=== PATIENT | female | born 1990 | race African-American/Black ===

== ENCOUNTER 2024-05-15 08:51 | Emergency (ER) | payer OTHER ==
[~2024-05-15] VITALS: Ht 160 cm; Wt 77.0 kg
[2024-05-15 09:36] VITALS: PULSE 75; RESP 16; O2SAT 98
[2024-05-15 11:32] LABS: Basophils # (auto) 0 10 ^3/uL (0-0.2); Basophils % (auto) 0.3 % (0.0-2.0); Eosinophils # (auto) 0 10 ^3/uL (0-0.8); Eosinophils % (auto) 0.3 % (0.0-7.0); Hematocrit 41.3 % (36.0-46.0); Hemoglobin 13.4 g/dL (12.2-16.2); Lymphocytes # (auto) 2.1 10 ^3/uL (0.4-5.4); Lymphocytes % (auto) 21.2 % (10.0-50.0); Mean Corpuscular Hgb Conc. 32.5 g/dL (32.0-36.0); Mean Corpuscular Volume 80.1 fL (80.0-100.0); Monocytes # (auto) 0.5 10 ^3/uL (0-1.3); Neutrophils # (auto) 7.2 10 ^3/uL (1.6-8.6); Neutrophils % (auto) 73.2 % (37.0-80.0); Platelet Count (auto) 322 10^3/uL (140-450); Red Blood Cells 5.16 10^6/uL (4.0-5.20); Red Cell Distribution Width 15.5 % (11.8-14.3); White Blood Cell 9.8 10^3/uL (4.4-10.8)
[2024-05-15 11:39] LABS: Chloride 108 mmol/L (98-107); Potassium 4.2 mmol/L (3.5-5.1); Sodium 138 mmol/L (136-145)
[2024-05-15 11:40] LABS: Anion Gap 8 (5-15); Carbon Dioxide 22 mmol/L (20-31)
[2024-05-15 11:41] LABS: Calcium 10.6 mg/dL (8.7-10.4)
[2024-05-15 11:45] LABS: BUN/Creatinine Ratio 10.1 (10.0-20.0); Blood Urea Nitrogen 8 mg/dL (9-23); Glucose 83 mg/dL (74-106)
[2024-05-15 12:55] VITALS: TEMP 97.9
[2024-05-15 14:18] LABS: Urine Bacteria None Seen /hpf (None Seen)
[2024-05-15 14:35] LABS: Urine Blood Negative /uL (Negative); Urine Clarity Clear (Clear); Urine Color Light-Yellow (Yellow); Urine Protein, UAD Negative (Negative); Urine Specific Gravity 1.009 (1.001-1.035); Urine Urobilinogen Normal (Negative); Urine WBC <1 /hpf (0 - 5)
[2024-05-15 15:11] VITALS: BP 122/69; PULSE 62; RESP 16; O2SAT 98
== END 2024-05-15 16:23 | disposition home or self-care (01) ==
LOC: ER 08:51 → EDBD 08:51 → ER 16:21
DX: R07.89 Other chest pain (principal); J45.909 Unspecified asthma, uncomplicated; R55 Syncope and collapse
CPT/HCPCS: 36415; 70450; 71046; 80048; 81001; 81025; 84484; 85025